=== PATIENT | male | born 1940 | race Caucasian/White ===

== ENCOUNTER 2016-11-25 13:53 | Inpatient (IN) | payer MEDICARE, BC ==
[~2016-11-25] VITALS: Ht 185.4 cm; Wt 86.8 kg
[2016-11-25] MEDS ORDERED: OMEP-110 PO (14:35)
[2016-11-25] MEDS ORDERED: NITR0.4T SL (14:37)
[2016-11-25] MEDS ORDERED: SODIUM CHLORIDE 0.9% 1,000 ML IV ONE ×2 (14:37→16:03)
[2016-11-25] MEDS ORDERED: CLON0.1T PO (14:37)
[2016-11-25] MEDS ORDERED: ALPR-475 PO (14:40)
[2016-11-25] MEDS ORDERED: CLOP75TA PO (14:40)
[2016-11-25] MEDS ORDERED: PRAV40TA2 PO (14:40)
[2016-11-25] MEDS ORDERED: TAMS0.4C2 PO (14:40)
[2016-11-25] MEDS ORDERED: GABA-827 PO (14:40)
[2016-11-25] MEDS ORDERED: LOSA25TA5 PO (14:40)
[2016-11-25] MEDS ORDERED: KETOROLAC 30 MG/1 ML ONE (14:46)
[2016-11-25] MEDS ORDERED: ONDANSETRON 2MG/ML, 2ML ONE ×2 (14:46→16:18)
[2016-11-25] MEDS ORDERED: SODIUM CHLORIDE FLUSH 10ML SYR IVF ONE (15:00)
[2016-11-25] MEDS ORDERED: SODIUM CHLORIDE 0.9% 1,000ML IVBOLUS ONE (15:00)
[2016-11-25] MEDS ORDERED: KETOROLAC 30 MG/1 ML IVPush ONE (15:00)
[2016-11-25] MEDS ORDERED: ONDANSETRON 2MG/ML, 2ML IVPush ONE (15:00)
[2016-11-25 15:05] LABS: HEMATOCRIT 43.4 % (39.2-51.8); HEMOGLOBIN 14.9 g/dL (13.7-18.0); WHITE BLOOD COUNT 4.9 x10^3/uL (3.4-10)
[2016-11-25 15:17] LABS: ASPARTATE AMINO TRANSFERASE 12 U/L (15-37); BLOOD UREA NITROGEN 17 mg/dL (7-18)
[2016-11-25] MEDS ORDERED: SODIUM CHLORIDE FLUSH 10ML SYR IVF PRN (16:30)
[2016-11-25] MEDS: ONDANSETRON 2MG/ML, 2ML IVPush PRN ×2 (16:34→22:47)
[2016-11-25 17:37] VITALS: BP 161/83
[2016-11-25] MEDS ORDERED: ONDANSETRON 2MG/ML, 2ML IVPush PRN (18:30)
[2016-11-25] MEDS ORDERED: NITROGLYCERIN 0.4 MG BOTTLE (25 TABS) SL PRN (18:30)
[2016-11-25] MEDS: FENTANYL PF 100 MCG/2ML IVPush PRN ×2 (18:43→22:47)
[2016-11-25 19:00] VITALS: BP 161/83
[2016-11-25 19:55] VITALS: BP 153/78
[2016-11-25] MEDS: SODIUM CHLORIDE 0.9% 1,000 ML IV SCH (20:45)
[2016-11-25] MEDS: ENOXAPARIN 40 MG/0.4 ML SQ SCH (20:45)
[2016-11-25] MEDS ORDERED: GABAPENTIN 300 MG CAPSULE PO SCH (21:00)
[2016-11-25] MEDS: KETOROLAC 30 MG/1 ML IVPush PRN (21:06)
[2016-11-26 02:59] VITALS: BP 123/67
[2016-11-26] MEDS: SODIUM CHLORIDE 0.9% 1,000 ML IV SCH ×3 (03:28→20:18)
[2016-11-26] MEDS: FENTANYL PF 100 MCG/2ML IVPush PRN ×2 (03:28→09:09)
[2016-11-26] MEDS ORDERED: FLU VACCINE PER PHARMACY IM ONE (05:00)
[2016-11-26 05:51] LABS: HEMATOCRIT 37.9 % (39.2-51.8); HEMOGLOBIN 12.9 g/dL (13.7-18.0); WHITE BLOOD COUNT 4.3 x10^3/uL (3.4-10)
[2016-11-26 05:58] LABS: ASPARTATE AMINO TRANSFERASE 10 U/L (15-37); BLOOD UREA NITROGEN 13 mg/dL (7-18)
[2016-11-26] MEDS: ASPIRIN 81 MG TABLET EC PO SCH (06:03)
[2016-11-26] MEDS: KETOROLAC 30 MG/1 ML IVPush PRN (06:35)
[2016-11-26 07:22] VITALS: BP 164/65
[2016-11-26] MEDS: GABAPENTIN 300 MG CAPSULE PO SCH ×2 (09:00→21:26)
[2016-11-26] MEDS ORDERED: COLE625T12 PO (09:19)
[2016-11-26] MEDS ORDERED: ASPI-515 PO (09:19)
[2016-11-26] MEDS: LOSARTAN 25MG TABLET PO SCH (09:45)
[2016-11-26] MEDS: TAMSULOSIN 0.4 MG CAP.ER.24H PO SCH (09:45)
[2016-11-26] MEDS: CLOPIDOGREL 75 MG TABLET PO SCH (09:46)
[2016-11-26] MEDS ORDERED: FLU VACC QS2017-18 (36MOS+) UP/PF 0.5 ML IM-VACC ONE (13:00)
[2016-11-26 13:30] VITALS: BP 157/88
[2016-11-26 19:08] VITALS: BP 144/71
[2016-11-26] MEDS: ENOXAPARIN 40 MG/0.4 ML SQ SCH (21:26)
[2016-11-27] MEDS: SODIUM CHLORIDE 0.9% 1,000 ML IV SCH ×2 (02:35→08:40)
[2016-11-27 02:50] VITALS: BP 129/68
[2016-11-27] MEDS ORDERED: MAGNESIUM HYDROXIDE 8%, 30ML UDC PO PRN (03:30)
[2016-11-27] MEDS: ASPIRIN 81 MG TABLET EC PO SCH (05:54)
[2016-11-27 06:22] LABS: HEMOGLOBIN 12.5 g/dL (13.7-18.0); WHITE BLOOD COUNT 4.4 x10^3/uL (3.4-10)
[2016-11-27 06:51] LABS: BLOOD UREA NITROGEN 9 mg/dL (7-18)
[2016-11-27 07:15] VITALS: BP 162/70
[2016-11-27] MEDS: GABAPENTIN 300 MG CAPSULE PO SCH (08:37)
[2016-11-27] MEDS: CLOPIDOGREL 75 MG TABLET PO SCH (08:37)
[2016-11-27] MEDS: TAMSULOSIN 0.4 MG CAP.ER.24H PO SCH (08:37)
[2016-11-27] MEDS: LOSARTAN 25MG TABLET PO SCH (08:37)
[2016-11-27 13:05] VITALS: BP 160/65
== END 2016-11-27 16:30 | disposition home or self-care (01) | DRG 439 ==
LOC: ED 15:30 → EDIP 16:03 → 3NE 17:35
PROVIDERS: ADMIT Hospitalist; ATTEND Internal Medicine
DX: K85.00 Idiopathic acute pancreatitis without necrosis or infection (principal); Q45.3 Other congenital malformations of pancreas and pancreatic duct; G62.9 Polyneuropathy, unspecified; I48.91 Unspecified atrial fibrillation; E78.5 Hyperlipidemia, unspecified; E78.00 Pure hypercholesterolemia, unspecified; F41.9 Anxiety disorder, unspecified; G47.00 Insomnia, unspecified; K86.89 Other specified diseases of pancreas; I10 Essential (primary) hypertension; I25.10 Atherosclerotic heart disease of native coronary artery without angina pectoris; Z96.653 Presence of artificial knee joint, bilateral; I83.93 Asymptomatic varicose veins of bilateral lower extremities; Z95.5 Presence of coronary angioplasty implant and graft; N40.0 Benign prostatic hyperplasia without lower urinary tract symptoms; Z98.1 Arthrodesis status; Z88.6 Allergy status to analgesic agent; Z79.02 Long term (current) use of antithrombotics/antiplatelets; Z87.442 Personal history of urinary calculi; Z90.49 Acquired absence of other specified parts of digestive tract; Z88.1 Allergy status to other antibiotic agents; Z86.19 Personal history of other infectious and parasitic diseases
CPT/HCPCS: 36415; 71010; 74176; 74181; 80048; 80053; 80061; 81003; 82150; 83690; 83735; 84100; 85025; 90686; 93005; 96361; 96374; 96376; J1650; J1885; J2405; J3010; J7030